=== PATIENT | male | born 1935 | race Caucasian/White ===

== ENCOUNTER 2016-07-05 11:16 | Outpatient (CLI) | payer MEDICARE, BC ==
[~2016-07-05] VITALS: Ht 180.3 cm; Wt 77.6 kg
[2016-07-05 11:36] VITALS: BP_SYST 135; BP_SYST 143; BP_DIAS 61; BP_DIAS 65
[2016-07-05] MEDS ORDERED: CLOP75TA2 PO (17:14)
[2016-07-05] MEDS ORDERED: ATOR20TA PO (17:28)
[2016-07-05] MEDS ORDERED: TYL2T MC (17:28)
[2016-07-05] MEDS ORDERED: UBID1CAP53 PO (17:28)
[2016-07-05] MEDS ORDERED: LEVO25TA7 PO (17:28)
[2016-07-05] MEDS ORDERED: CALC-34 PO (17:28)
[2016-07-05] MEDS ORDERED: CYAN250014 PO (17:28)
[2016-07-05] MEDS ORDERED: RANI150C4 PO (17:28)
[2016-07-05] MEDS ORDERED: PSYL822P6 PO (17:28)
[2016-07-05] MEDS ORDERED: FISH1CAP16 PO (17:28)
[2016-07-05] MEDS ORDERED: BENA20TA2 PO (17:28)
[2016-07-05] MEDS ORDERED: GLUC1CAP9 PO (17:28)
[2016-07-05] MEDS ORDERED: DOCU-170 PO (17:28)
[2016-07-05] MEDS ORDERED: CYAN250010 PO (17:28)
[2016-07-05] MEDS ORDERED: CHOL50004 PO (17:28)
[2016-07-05] MEDS ORDERED: CELE100C PO (17:28)
[2016-07-05] MEDS ORDERED: PSYL1PAC8 PO (17:28)
[2016-07-05] MEDS ORDERED: MIRT15TA7 PO (17:29)
== END 2016-07-05 23:59 | disposition home or self-care (01) ==
LOC: CSC 11:16
PROVIDERS: ATTEND Internal Medicine
DX: G31.84 Mild cognitive impairment of uncertain or unknown etiology (principal); Z86.73 Personal history of transient ischemic attack (TIA), and cerebral infarction without residual deficits; E78.5 Hyperlipidemia, unspecified; I10 Essential (primary) hypertension; I49.3 Ventricular premature depolarization; F32.9 Major depressive disorder, single episode, unspecified; I65.29 Occlusion and stenosis of unspecified carotid artery; Z79.02 Long term (current) use of antithrombotics/antiplatelets; R29.6 Repeated falls
CPT/HCPCS: G0463

== ENCOUNTER 2016-07-26 13:58 | Outpatient (CLI) | payer MEDICARE, BC ==
[~2016-07-26] VITALS: Ht 180.3 cm; Wt 79.8 kg
[~2016-07-26 13:58] MED LIST: ATOR20TA PO; BENA20TA2 PO; CALC-34 PO; CELE100C PO; CHOL50004 PO; CLOP75TA2 PO; CYAN250014 PO; DOCU-170 PO; FISH1CAP16 PO; GLUC1CAP9 PO; LEVO25TA7 PO; MIRT15TA7 PO; PSYL1PAC8 PO; PSYL822P6 PO; RANI150C4 PO; TYL2T MC; UBID1CAP53 PO
[2016-07-26 14:09] VITALS: BP_SYST 128; BP_SYST 131; BP_DIAS 61; BP_DIAS 62
[2016-07-26 15:01] LABS: BASOPHILS # (AUTO) 0.1 /CMM (0.0-0.2); BASOPHILS % (AUTO) 0.8 % (0.0-2.0); EOSINOPHILS # (AUTO) 0.6 /CMM (0.0-0.7); HEMATOCRIT 38 % (39-51); HEMOGLOBIN 12.4 g/dL (13.5-17.5); LYMPHOCYTES % (AUTO) 15.2 % (20.0-44.0); MEAN CORPUSCULAR HEMOGLOBIN 31 PG (26.0-33.0); MEAN CORPUSCULAR HGB CONC 33 g/dl (31.0-36.0); MEAN CORPUSCULAR VOLUME 93 fL (80-96); MONOCYTES # (AUTO) 0.8 /CMM (0.1-1.30); MONOCYTES % (AUTO) 11.3 % (2.0-12.0); NEUTROPHILS # (AUTO) 4.4 /CMM (1.8-8.9); NEUTROPHILS % (AUTO) 63.7 % (43.0-81.0); PLATELET COUNT (AUTO) 182 /CMM (150-450); RDW COEFFICIENT OF VARIATION 13.2 (11.5-15.0); RED BLOOD CELL COUNT(AUTO) 4.03 MIL/uL (4.5-6.0); WHITE BLOOD COUNT (AUTO) 6.8 K/uL (4.3-11.0)
[2016-07-26 15:16] LABS: ALBUMIN 3.5 g/dL (3.4-5.0); BILIRUBIN,DIRECT 0.1 mg/dL (0.0-0.2); BILIRUBIN,TOTAL 0.3 mg/dL (0.2-1.0); CALCIUM, SERUM 8.9 mg/dL (8.5-10.1); CREATININE 1.2 mg/dL (0.6-1.3); MAGNESIUM 2.1 mg/dL (1.8-2.4); POTASSIUM 4.7 mmol/L (3.5-5.1); TOTAL PROTEIN, SERUM 6.8 g/dL (6.4-8.2)
[2016-07-27 06:09] LABS: *RAPID PLASMA REAGIN QUAL Non Reactive (Non Reactive)
[2016-07-27 10:31] LABS: CALCIUM, IONIZED 5.2 mg/dL (4.5-5.6)
== END 2016-07-26 23:59 | disposition home or self-care (01) ==
LOC: CSC 13:58
PROVIDERS: ATTEND Internal Medicine
DX: I10 Essential (primary) hypertension (principal); F03.90 Unspecified dementia, unspecified severity, without behavioral disturbance, psychotic disturbance, mood disturbance, and anxiety; F32.9 Major depressive disorder, single episode, unspecified; I49.3 Ventricular premature depolarization; K11.7 Disturbances of salivary secretion; R55 Syncope and collapse; Z86.73 Personal history of transient ischemic attack (TIA), and cerebral infarction without residual deficits
CPT/HCPCS: 36415; 80048-TC; 80076-TC; 82306; 82330; 83735-TC; 85025-TC; 86592; G0463